=== PATIENT | male | born 1990 | race African-American/Black ===

== ENCOUNTER 2023-03-26 11:15 | Emergency (ER) | payer OTHER ==
[~2023-03-26] VITALS: Ht 175.3 cm; Wt 93.2 kg
[2023-03-26 11:16] VITALS: TEMP 97.9
[2023-03-26 14:15] VITALS: BP 135/80; PULSE 88; RESP 20
== END 2023-03-26 14:22 | disposition home or self-care (01) ==
LOC: EMS 11:15
DX: N34.2 Other urethritis (principal)
CPT/HCPCS: 87491; 87591; 99281; 99283